=== PATIENT | male | born 1985 | race Two or more races ===

== ENCOUNTER 2021-12-21 16:52 | Emergency (ER) | payer OTHER ==
[~2021-12-21] VITALS: Ht 175.3 cm; Wt 68.0 kg
== END 2021-12-21 21:48 | disposition home or self-care (01) ==
LOC: ER 16:52
DX: N39.0 Urinary tract infection, site not specified (principal); F41.9 Anxiety disorder, unspecified; Z20.822 Contact with and (suspected) exposure to COVID-19